=== PATIENT | male | born 1970 | race American Indian/Alaskan Native ===

== ENCOUNTER 2022-07-08 08:51 | Emergency (ER) | payer SELFPAY ==
[2022-07-08] MEDS ORDERED: Lactated Ringers 1,000 ML IV ONE (08:56)
[2022-07-08] MEDS ORDERED: Rocuronium 100 MG/10 ML MDV IV ONE (08:56)
[2022-07-08] MEDS ORDERED: Succinylcholine 200 MG/10 ML MDV IV ONE (08:56)
[2022-07-08] MEDS ORDERED: Sodium Chloride 0.9% 1,000 ML IV ONE ×2 (09:09→09:13)
[2022-07-08] MEDS ORDERED: EPINEPHrine 1 MG/1 ML Amp IVPUSH ONE ×2 (09:19→09:30)
[2022-07-08] MEDS ORDERED: EPINEPHrine 1:10,000 1 MG/10 ML Syringe ONE (09:28)
[2022-07-08 09:41] LABS: ESTIMATED GFR 51 mL/min (>60)
[2022-07-08] MEDS ORDERED: TRANEXAMIC ACID IV ONE (11:49)
[2022-07-08] MEDS ORDERED: SODIUM CHLORIDE 0.9% IV ONE (11:49)
[2022-07-08] MEDS ORDERED: EPINEPHrine 1:10,000 1 MG/10 ML Syringe IV ONE ×2 (12:00→12:01)
[2022-07-08] MEDS ORDERED: Tranexamic Acid 1,000 MG/10 ML Vial IV ONE (12:00)
== END 2022-07-08 09:31 | disposition expired ==
LOC: FB.ED 08:55
DX: S11.91XA Laceration without foreign body of unspecified part of neck, initial encounter (principal); I95.9 Hypotension, unspecified; E86.1 Hypovolemia; R58 Hemorrhage, not elsewhere classified; W45.8XXA Other foreign body or object entering through skin, initial encounter
CPT/HCPCS: 31500; 36415; 36430; 36680; 80053; 80307; 82150; 85025; 85610; 85730; 86850; 86900; 86901; 86920; 86922; 96374; 99285; J0171; J0330; J7030; J7120; P9016